=== PATIENT | male | born 1980 | race Caucasian/White ===

== ENCOUNTER 2021-01-25 08:16 | Day surgery (SDC) | payer OTHER ==
[~2021-01-25] VITALS: Ht 175.3 cm; Wt 92.2 kg
[2021-01-25 08:52] VITALS: BP 119/86; PULSE 65; TEMP 98.5
[2021-01-25 09:55] VITALS: BP 115/84; PULSE 59; TEMP 97.5
--- NOTE | 2021-01-25 09:55 | NUR ---
Pt to GI bay 5 via cart from ENDO. Pt awake and alert. Pt ambulates to recliner with stand by assistance. Pt denies pain or nausea. in room. VSS. Call light within reach. Muffin and soda given per pt request.
[2021-01-25 10:10] VITALS: BP 114/80; PULSE 55
--- NOTE | 2021-01-25 10:10 | NUR ---
Pt continues to rest. Denies needs. Call light within reach.
[2021-01-25 10:25] VITALS: BP 136/85; PULSE 59
--- NOTE | 2021-01-25 10:25 | NUR ---
Discharge instructions reviewed. Pt voices understanding. IV site discontinued with all parts intact. Pt up to dress. Call light within reach.
--- NOTE | 2021-01-25 10:40 | NUR ---
Pt escorted to private car via wheel chair. Pt accompanied home by her .
== END 2021-01-25 10:40 | disposition home or self-care (01) ==
LOC: SDCO 08:16
DX: K21.00 Gastro-esophageal reflux disease with esophagitis, without bleeding (principal); K22.8 Other specified diseases of esophagus; K22.2 Esophageal obstruction; Z20.822 Contact with and (suspected) exposure to COVID-19; Z88.8 Allergy status to other drugs, medicaments and biological substances; Z79.891 Long term (current) use of opiate analgesic; Z87.891 Personal history of nicotine dependence
CPT/HCPCS: J2704; J3010; J7120

== ENCOUNTER 2021-03-04 16:31 | Emergency (ER) | payer OTHER ==
[~2021-03-04] VITALS: Ht 175.3 cm; Wt 93.2 kg
[2021-03-04 16:38] VITALS: TEMP 98.5
[2021-03-04 20:10] VITALS: BP 105/64; PULSE 56
== END 2021-03-04 19:20 | disposition home or self-care (01) ==
LOC: COL.ER 16:31
DX: K22.2 Esophageal obstruction (principal); Z88.1 Allergy status to other antibiotic agents
CPT/HCPCS: J1610; J2060; J2704; J7030

== ENCOUNTER 2021-06-05 13:38 | Emergency (ER) | payer OTHER ==
[~2021-06-05] VITALS: Ht 175.3 cm; Wt 93.2 kg
[2021-06-05 13:51] VITALS: TEMP 98.5
[2021-06-05 17:03] VITALS: BP 118/85; PULSE 99
== END 2021-06-05 17:04 | disposition home or self-care (01) ==
LOC: COL.ER 13:38
DX: T18.128A Food in esophagus causing other injury, initial encounter (principal)
CPT/HCPCS: 31955; 32149; 32161; 32169

== ENCOUNTER 2021-06-28 10:40 | Day surgery (SDC) | payer OTHER ==
[~2021-06-28] VITALS: Ht 175.3 cm; Wt 93.5 kg
[2021-06-28 12:09] VITALS: BP 134/94; PULSE 57; TEMP 97.7
[2021-06-28] MEDS ORDERED: PRILOSEC 20MG20 MG PO (12:13)
[2021-06-28 13:05] VITALS: BP 112/82; PULSE 59; TEMP 97.9
--- NOTE | 2021-06-28 13:05 | NUR ---
Pt returns to [place] [facility], alert and oriented x3, ambulates to recliner without difficulty. Denies pain or nausea, VSS. Given water and a muffin. Call light in reach.
[2021-06-28 13:20] VITALS: BP 121/90; PULSE 58
--- NOTE | 2021-06-28 13:20 | NUR ---
Pt's brought back to room after her arrival. Pt denies needs. VSS. Call light in reach.
[2021-06-28 13:35] VITALS: BP 122/90; PULSE 54
--- NOTE | 2021-06-28 13:45 | NUR ---
Pt talks with Dr. Pacheco, doing well, discharge instructions given to pt and his . VSS. IV discontinued and pt taken to private car and left in care of his at this time.
== END 2021-06-28 13:45 | disposition home or self-care (01) ==
LOC: SDCO 10:40
DX: K22.8 Other specified diseases of esophagus (principal); K22.2 Esophageal obstruction; K20.0 Eosinophilic esophagitis; Z20.822 Contact with and (suspected) exposure to COVID-19; Z79.899 Other long term (current) drug therapy
CPT/HCPCS: C1726; J2704; J3010; J7030

== ENCOUNTER 2021-08-30 09:15 | Day surgery (SDC) | payer OTHER ==
[~2021-08-30] VITALS: Ht 175.3 cm; Wt 92.9 kg
[~2021-08-30 09:15] MED LIST: PRILOSEC 20MG20 MG PO
[2021-08-30] MEDS ORDERED: PRILOSEC 20MG20 MG PO (09:28)
[2021-08-30 09:34] VITALS: BP 130/98; PULSE 65; TEMP 98.8
[2021-08-30 12:30] VITALS: BP 111/76; PULSE 65
[2021-08-30 12:45] VITALS: BP 125/91; PULSE 61
[2021-08-30 13:00] VITALS: BP 108/85; PULSE 56
--- NOTE | 2021-08-30 13:15 | NUR ---
Pt returned to gi bay 2 via cart and ambulated to recliner. arrived after procedure. Pt A&O. VSS-see flowsheet. Pt tolerated a pepsi and denied complaints. Discharge teaching completed, pt verbalized understanding. Pt taken via wheelchair to private vehicle for dc home with to drive.
[2021-08-30 15:01] VITALS: BP 111/76; PULSE 68
== END 2021-08-30 13:15 | disposition home or self-care (01) ==
LOC: SDCO 09:15
DX: K21.00 Gastro-esophageal reflux disease with esophagitis, without bleeding (principal); K22.2 Esophageal obstruction; K22.70 Barrett's esophagus without dysplasia; Z20.822 Contact with and (suspected) exposure to COVID-19; Z79.899 Other long term (current) drug therapy; Z87.891 Personal history of nicotine dependence
CPT/HCPCS: C1726; J2704; J7030

== ENCOUNTER 2022-03-19 11:28 | Emergency (ER) | payer OTHER ==
[~2022-03-19] VITALS: Ht 175.3 cm; Wt 93.2 kg
[2022-03-19] MEDS ORDERED: FLEXERIL 1010 MG/TAB PO (12:49)
[2022-03-19 13:07] VITALS: BP 124/95; PULSE 73; TEMP 98.4
== END 2022-03-19 13:07 | disposition home or self-care (01) ==
LOC: COL.ER 11:28
DX: S29.012A Strain of muscle and tendon of back wall of thorax, initial encounter (principal); Z28.311 Partially vaccinated for COVID-19; X58.XXXA Exposure to other specified factors, initial encounter
CPT/HCPCS: J1885; J2360

== ENCOUNTER 2022-07-11 10:41 | Day surgery (SDC) | payer OTHER ==
[~2022-07-11] VITALS: Ht 175.3 cm; Wt 94.3 kg
[~2022-07-11 10:41] MED LIST changes: +FLEXERIL 1010 MG/TAB PO
[2022-07-11] MEDS ORDERED: ZOLOFT 50MG50 MG PO (11:07)
[2022-07-11] MEDS ORDERED: PROTONIX 40MG T40 MG PO (11:08)
[2022-07-11 12:45] VITALS: BP 127/61; PULSE 63; TEMP 97
--- NOTE | 2022-07-11 12:54 | NUR ---
1245 - PT arrives and was settled by Nita RAYMUNDO. Written report obtained.
[2022-07-11 13:00] VITALS: BP 122/89; PULSE 60
--- NOTE | 2022-07-11 13:05 | NUR ---
1300 - VSS. PT expressed desire to be discharged and states ride is on the way. Call marie is within reach if needed. PT has finishsed snack and drink; denies pain/nausea.
[2022-07-11 13:14] VITALS: BP 122/88; PULSE 68; TEMP 97.5
[2022-07-11 13:15] VITALS: BP 120/85; PULSE 63
--- NOTE | 2022-07-11 13:30 | NUR ---
1315 - VSS. IV discontinued. Catheter tip intact. Pressure bandage applied. NO redness or swelling noted. DC instructions and educational material revewed w/ PT who verbalized understanding and signed the related paperwork. Questions answered to PT satisfaction. PT refused RN assistance changing; call marie remains within reach if needed.
--- NOTE | 2022-07-11 13:35 | NUR ---
1335 - PT dismissed from endo via wheelchair by Murali RAYMUNDO. PT has DC packet and personal belongings; PT was transferred into the care of his , who is driving private car.
== END 2022-07-11 13:36 | disposition home or self-care (01) ==
LOC: SDCO 10:41
DX: K21.00 Gastro-esophageal reflux disease with esophagitis, without bleeding (principal); K22.2 Esophageal obstruction; K22.70 Barrett's esophagus without dysplasia
CPT/HCPCS: C1726; J2704; J7030

== ENCOUNTER 2024-09-02 08:04 | Day surgery (SDC) | payer OTHER ==
[~2024-09-02] VITALS: Ht 175.3 cm; Wt 96.8 kg
[~2024-09-02 08:04] MED LIST changes: +LR 1,000 ML IV SCH; +Ondansetron 4 MG/2 ML VIAL IV PRN; +PROTONIX 40MG T40 MG PO; +ZOLOFT 100MG100 MG PO
[2024-09-02 08:39] VITALS: BP 109/79; PULSE 71; TEMP 98.9
[2024-09-02] MEDS ORDERED: ZOLOFT 25MG25 MG PO (08:43)
--- NOTE | 2024-09-02 09:07 | NUR ---
The patient ambulated back to [place] [facility] independently using a steady gait and appeared to tolerate the activity well. Vital signs obtained. Consent signed. 20G IV started in right hand with one stick, LR Infusing without difficulty. Assessment completed. Home medications reconcilled. The patient is going to call or text his mother in law when he is ready to be discharged. Denies any further needs at [facility]. Warm blanket provided.
[2024-09-02 10:15] VITALS: BP 101/79; PULSE 68; TEMP 96.9
--- NOTE | 2024-09-02 10:15 | NUR ---
PATIENT AMBULATED TO CHAIR WITH STEADY GAIT, ASSIST OF 2. ALERT AND AWAKE. DENIES PAIN, NAUSEA AND SHORTNESS OF BREATH. BREATHING REGULAR AND UNLABORED ON ROOM AIR. SKIN WARM AND DRY. IV IN PLACE. NURSE HANDOFF COMPLETED IN ROOM. SEE CHART FOR VITAL SIGNS. PATIENT HAD APPLE JUICE AND A MUFFIN, BOTH TOLERATED WELL. NO DYSPHAGIA. CALL LIGHT IN REACH.
[2024-09-02 10:30] VITALS: BP 113/84; PULSE 67
[2024-09-02 10:44] VITALS: BP 127/83; PULSE 60
--- NOTE | 2024-09-02 10:52 | NUR ---
1033: DISCHARGE TEACHING COMPLETED WITH PRINTED EDUCATION AND INSTRUCTIONS SENT HOME WITH PATIENT. PATIENT VERBALIZED UNDERSTANDING OF TEACHING. 1043: IV REMOVED. GAUZE AND COBAN PLACED OVER SITE. 1049: DR. LANCE MET WITH PATIENT IN ROOM TO DISCUSS PROCEDURE. 1052: PATIENT DISCHARGED HOME WITH [facility] (MOTHER IN LAW) TRANSPORT.
== END 2024-09-02 10:52 | disposition home or self-care (01) ==
LOC: SDCO 08:04
DX: K21.00 Gastro-esophageal reflux disease with esophagitis, without bleeding (principal); K22.2 Esophageal obstruction; K22.81 Esophageal polyp; K22.70 Barrett's esophagus without dysplasia
CPT/HCPCS: J2704; J7120